=== PATIENT | female | born 1970 | race Caucasian/White ===

== ENCOUNTER 2025-03-13 13:10 | Outpatient (AMB) | payer OTHER, SELFPAY ==
--- NOTE | 2025-03-13 13:17 | A.OFFPC_ITS ---
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 Intake Note: New patient visit Business Office Representative Required: No Allergies No Known Allergies Allergy (Verified 03/13/25 13:17) Medication List - Last Reconciled 03/13/25 by Huong Reid PA-C estradiol 1 patch topical QWEEK progesterone micronized 100 mg PO BEDTIME Tobacco use date assessed: 03/13/25 Dental Screening Dental Screen Date: 03/13/25 Did you have a dental visit in the last 12 months?: Yes Did you have a dental problem in the last 6 months where you did not have access to dental care?: No Was dental information given to patient?: Patient has dentist HPI 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 She is transferring from [facility]. Psych: Has a history of anxiety and was previously on Zoloft, hydroxyzine, wellbutrin, citalopram, Prozac. Believes not a responder. She was seeing and found it ineffective. Thinks some of this is related to her marriage. She works in [employer] and states that getting does not seem like something she would want to do at this point. She states that she does not want to leave the marriage yet as she has two children fifteen and 13 years old. She states that she is hoping her we will change. She is thinking about starting a natural supplement. 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 1. Little interest or pleasure in doing things: several days 2. Feeling down, depressed, or hopeless: several days 3. Trouble falling or staying asleep, or sleeping too much: not at all 4. Feeling tired or having little energy: more than half the days 5. Poor appetite or overeating: not at all 6. Feeling bad about yourself - or that you are a failure or have let yourself or your family down: not at all 7. Trouble concentrating on things, such as reading the newspaper or watching television: not at all 8. Moving or speaking so slowly that other people could have noticed. Or the opposite - being so fidgety or restless that you have been moving around a lot more than usual: not at all 9. Thoughts that you would be better off or of hurting yourself in some way: not at all Total score: 4 Depression Screening Interpretation: Positive Depression Screening Follow-up: Existing condition and Declines treatment Depression Screening Done: Yes 75337 - PHQ-9 Billing: Yes Source: Developed by Drs. Samson Zamora, Olive Salcedo, Davey Arboleda and colleagues, with an educational angela from [employer]. Thrive Questionnaire Date Thrive assessed: 03/06/25 I am a: Patient What is your living situation today?: I have a steady place to live Within the past 12 months, did the food you bought not last and you didn't have the money to get more?: Never true Within the past 12 months, did you worry whether your food would run out before you got money to buy more?: Never true Do you have trouble paying for medicines?: No Do you have trouble getting transportation to medical appointments?: No Do you have trouble paying your heating and electricity bill?: No Do you have trouble taking care of your child, family member or friend?: No Do you have trouble with day-to-day activities such as bathing, preparing meals, shopping, managing finances, etc.?: No Are you currently unemployed and looking for a job?: No Are you interested in more education?: No Please select the resources that you would like help with: None Currently or been in a relationship where the following occur: No concerns reported THRIVE Score: 0 AUDIT C Alcohol Use Questionnaire (AUDIT-C) 1. How often do you have a drink containing alcohol?: Monthly or less 2. How many drinks containing alcohol do you have on a typical day when you are drinking?: 1 or 2 3. How often do you have six or more drinks on one occasion?: Never Total Score: 1 ALISON-7 AMB Questionnaire ALISON-7 Date ALISON - 7 assessed: 03/13/25 Feeling nervous, anxious, or on edge: 2 = More than half the days Not being able to stop or control worryin = Several days Worrying too much about different things: 1 = Several days Trouble relaxin = Several days Being so restless that it is hard to sit still: 0 = Not at all Becoming easily annoyed or irritable: 3 = Nearly every day Feeling afraid as if something awful might happen: 1 = Several days Total ALISON-7 score (0-4 normal; 5-9 mild; 10-14 moderate; 15-21 severe): 9 Source: Developed by Drs. Samson Zamora, Olive Salcedo, Davey Arboleda and colleagues, with an educational angela from [employer]. ALISON-7 Assessment Billing ALISON-7 Assessment Tool: ALISON-7 Assessment 51444 Physical exam (Primary Care) Depression Screening Interpretation: Positive Depression Screening Follow-up: Existing condition and Declines treatment Thrive Assessment: Date of Thrive Assessment Date Thrive assessed 03/06/25 03/06/25 12:28 Currently or been in a relationship where the following occur: No concerns reported Const Orientation/consciousness: patient oriented x3 HENWV Ears: hearing grossly normal bilaterally Neck Thyroid: Thyroid normal Lymphatic: no lymphadenopathy noted Resp Auscultation: clear to auscultation bilaterally Cardio Rate: regular rate Rhythm: regular rhythm Heart sounds: S1 normal heart sound present and S2 normal heart sound present GI Inspection: Yes normal to inspection Palpation (GI): Soft to palpation and Other GI palpation findings present (nontender, no cva tenderness) Auscultation: normoactive bowel sounds Rectal Exam - Female: deferred Skin General skin exam: no rashes or lesions noted Neuro General: patient oriented x3, gait normal and no focal motor deficits Coding Level of Care Code New Pt Level 3 (56413) Complex EM visit Add On G2211 Diagnoses Fatigue R53.83 Generalized anxiety disorder F41.1 Dysthymia F34.1 Additional Codes ALISON-7 Assessment Billing - ALISON-7 Assessment Tool: ALISON-7 Assessment 34928 ([id number]) PHQ-9 - 06687 - PHQ-9 Billing: Yes ([id number]) Assessment & Plan Assessment & Plan (1) Fatigue: Code(s): R53.83 - Other fatigue Category: Medical Plan: labs ordered (2) Generalized anxiety disorder: Code(s): F41.1 - Generalized anxiety disorder Category: Medical Plan: Stable. Does not wish to do anything at this point. (3) Dysthymia: Code(s): F34.1 - Dysthymic disorder Category: Medical Plan: As above. Labs ordered today. We will follow up pending test results. Colonoscopy referral placed. Dermatology referral placed for a skin check. Orders: Orders Complete Blood Count Auto Diff Today F34.1 - Dysthymic disorder, F41.1 - Generalized anxiety disorder, R53.83 - Other fatigue UA CC w/rflx Micro + Cult Today F34.1 - Dysthymic disorder, F41.1 - Generalized anxiety disorder, R53.83 - Other fatigue, Z13.220 - Encounter for screening for lipoid disorders Comprehensive [place]. Panel Fast Today F34.1 - Dysthymic disorder, F41.1 - Generalized anxiety disorder, R53.83 - Other fatigue Lipid Panel Today F34.1 - Dysthymic disorder, F41.1 - Generalized anxiety disorder, R53.83 - Other fatigue TSH reflex Free T4 Today F34.1 - Dysthymic disorder, F41.1 - Generalized anxiety disorder, R53.83 - Other fatigue Vitamin B12 and Folate Today F34.1 - Dysthymic disorder, F41.1 - Generalized anxiety disorder, R53.83 - Other fatigue Magnesium Today F34.1 - Dysthymic disorder, F41.1 - Generalized anxiety disorder, R53.83 - Other fatigue Vitamin D 25-OH Total Today F34.1 - Dysthymic disorder, F41.1 - Generalized anxiety disorder, R53.83 - Other fatigue Referrals Gastroenterology Referral F34.1 - Dysthymic disorder, F41.1 - Generalized anxiety disorder, R53.83 - Other fatigue, Z12.11 - Encounter for screening for malignant neoplasm of colon Dermatology Referral Z12.83 - Encounter for screening for malignant neoplasm of skin
[2025-03-13 13:22] VITALS: BP 128/74; PULSE 74; RESP 12; O2SAT 97; BMI 23.4
--- OUTSIDE RECORDS SUMMARY | 2025-03-13 14:28 | XMS_ITS | Clinical Summary ---
Author Organization [facility] [address] [facility] Address [address] [place] [address] Phone Care Team Providers Care Machine Riveter Name Role Phone Guillermo Villalobos MD Primary Care Provider [phone] Allergies No known active allergies Medications progesterone (PROMETRIUM) 100 mg capsule Take 1 capsule (100 mg total) by mouth at bedtime. 30 each 12 5 12/17/19 26 Active estradioL (CLIMARA) 0.05 mg/[address] 1 patch on the skin 1 (one) time per week. 4 each 11 5 03/05/20 26 Active estradioL (CLIMARA) 0.0375 mg/[address] 1 patch on the skin 1 (one) time per week. 4 patch 12 5 03/05/20 25 Discontinued Active Problems Problem Noted Date Diagnosed Date Anxiety disorder 06/30/2012 Encounters Date Type Department Care Team Description 12/17/2024 9:30 AM EST Office Visit Obstetrics & Gynecology - [address] [address] Lisa Thompson CNM Fatigue, unspecified type (Primary Dx); Dry skin; Arthralgia, unspecified joint from Last 3 Months Immunizations Name Administration Dates Next Due Influenza Quadravalent, MDCK , 0.5ml, preservative free (Flucelvax) 6mo and older 01/09/2022 Influenza trivalent, with preservative (Fluzone; Afluria) 6mo and older 07/28/2016,08/28/2015,08/26/2014,2011 Tdap Tetanus diptheria acell ular pertussis (Boostrix; Adacel) 7yo and older 04/11/2013,06/28/2012 Surgical History Surgery Date Site/Laterality Comments OTHER SURGICAL HISTORY 1998 PROCEDURE: IMPLANT BREAST SILICONE/EQ; COMMENT: saline BREAST ENHANCEMENT SURGERY W IMPLANT Medical History Medical History Date Comments Depression DX:Depression Anxiety DX:Anxiety History of bilateral saline breast implants 08/26/2014 DX:History of bilateral sali ne breast implants Family History Medical History Relation Name Comments Cancer Father Samson Artis Heart attack Father Samson Artis Heart disease Father Samson Artis Hypertension Father Samson Artis Kidney disease Father Samson Artis Lung disease Father Samson Artis Clotting disorder Mother Rosa Artis Dementia Mother Rosa Artis Other: Blood clots legs Mother Rosa Artis by description, probably phlebitis not DVT Other: Ulcers (stomach) Mother Rosa Artis Developmental delay Sister 1 Sophia Artis Other: Cavernous Malformation Sister 1 Sophia Valentin magnus Breast cancer Neg Hx Colon cancer Neg Hx Ovarian cancer Neg Hx Uterine cancer Neg Hx Relation Name Status Comments Brother Alive [place] Daughter 1 Alive 1996 Daughter 2 Alive 2012 healthy Father Samson Artis Alive [place] late 50' s ,? CABG orother surgery , HTN Maternal Grandfather Maternal Grandmother Mother Rosa Artis Alive age 78 asof 2 014:blood clot legs, dementia,permanent bladder catheter, Paternal Grandfather Paternal Grandmother Sister 1 Sophia Artis Sister 2 Alive fraternal twin she and her children have cavernous malformation Son 1 Alive 1994 Son 2 Alive 2009 Social History Tobacco Use Types Packs/Day Years Used Date Smoking Tobacco: Never Smokeless Tobacco: Never Tobacco Cessation:Counseling Given: Not Answered Alcohol Use Standard Drinks/Week Comments Yes 0 (1 standard drink = 0.6 oz pur e alcohol) Housing Instability Answer Date Recorde d Are you worried that in the next 2 months you may not have stable housing? No 11/13/2024 Food Access & Nutrition Answer Date Rec orded Do you have access to a vari ety of food including fruits and vegetables? Yes 11/13/2024 Access to Healthcare Answer Date Record ed Within the last 3 months, ho w many times did you visit the emergency department for your medical care? 0 11/13/2024 Health Literacy Answer Date Recorded How often do you need to hav e someone help you when you read instructions, pamphlets, or other written material from your doctor or pharmacy? Never 11/13/2024 Caregiver: How often do you need to have someone help you when you read instructions, pamphlets, or other written material from your doctor or pharmacy? Not on file 11/13/2024 Financial Risk Answer Date Recorded How hard is it for you to pa y for the very basics like food, housing, medical care, and air conditioning / heating? Not very hard 11/13/2024 Transportation Answer Date Recorded Has the lack of transportati on kept you from meetings, work, or from getting things needed for daily living? No Has the lack of transportati on kept you from medical appointments or from getting medications? No 11/13/2024 Social Isolation Answer Date Recorded How often do you feel lonely or isolated from those around you? Sometimes 11/13/2024 Food Risk Answer Date Recorded Within the past 12 months we worried whether our food would run out before we got money to buy more. Never true 11/13/2024 Within the past 12 months th e food we bought just didn't last and we didn't have money to get more. Never true 11/13/2024 Dependent Care Answer Date Recorded Do you need help finding or paying for care for your loved ones. For example, assistant child care teacher or elderly care for an older adult? No 11/13/2024 Education Answer Date Recorded Do you think completing more education or training, like finishing a GED, going to college, or learning a trade, would be helpful for you? N/A 11/13/2024 Employment and Income Answer Date Recor ded During the last four weeks, have you been actively looking for work? No 11/13/2024 Living Situation Answer Date Recorded What is your living situation? 1 Comments No Sex and Gender Information Value Date Recorded Sex Assigned at Not on file Legal Sex Female 6:45 PM EST Gender Identity Not on file Sexual Orientation Not on file Obstetrics History Para Term AB IAB SAB Ectopic Multiple Livin g Live Births 5 4 4 1 1 4 4 Date Outcome GA Total Labor Labor/2nd/3rd Weight Sex Type Anes PTL Alejandra A1 A5 Name Clin 995 Term 40w 0d 3459 g (122 oz) M Vag-S pont Livin g Darrell Delivery Location:[facility] Comments:uncompl 997 Term 40w 0d 3459 g (122 oz) F Vag-S pont Livin g Aedan Delivery Location:[facility] Comments:uncompl 010 Term 40w 0d 3459 g (122 oz) M Vag-S pont Livin g Frank Delivery Location:[facility] Comments:uncompl 08/2011 SAB 8w0 d Comments:uncompl dxc 013 Term 40w 3d 4h 28m/ 3941 g (139 oz) F Vag-S pont None Livin g 9 9 Xiao Delivery Location:[facility] Comments:uncompl Last Filed Vital Signs Vital Sign Reading Time Taken Comments Blood Pressure 116/76 12/17/2024 9:40 AM EST Pulse 81 12/17/2024 9:40 AM EST Temperature - - Respiratory Rate 14 11/20/2024 2:16 PM EST Oxygen Saturation - - Inhaled Oxygen Concentration - - Weight 60.8 kg (134 lb) 12/17/2024 9:40 AM EST Height 160 cm (5' 3 ) 12/17/2024 9:40 AM EST Body Mass Index 23.74 12/17/2024 9:40 AM EST Plan of Treatment Health Maintenance Due Date Last Done Comments Hepatitis B Vaccines (1 of 3 - 19+ 3-dose series) 01/17/1991 Pneumococcal Vaccine: 50+ Years (1 of 1 - PCV) 01/17/2022 Zoster Vaccines (1 of 2) 01/17/2022 Colorectal Cancer Screening: Colonoscopy 10/16/2022 Hepatitis C Screening 10/16/2022 DTaP,Tdap,and Td Vaccines (3 - Td or Tdap) 04/11/2023 04/11/2013, 06/28/2012 COVID-19 Vaccine (3 - 2023- season) 2024 01/09/2022, 03/19/2021 Influenza Vaccine (Season Ended) 2025 01/09/2022, 07/28/2016, 08/28/2015, Additional history exists Depression Screening 11/13/2025 11/13/2024 Social Influencers of Health Screening 11/13/2025 11/13/2024 Breast Cancer Screening 10/09/2026 10/09/20 24, 09/27/2023, 09/23/2022, Additional history exists Cervical Cancer Screening: HPV 11/20/2029 11/20/2024, 02/27/2018 HIV Screening Completed 10/13/2012 HIB Vaccines Aged Out No longer eligi ble based on patient's age to complete this topic HPV Vaccines Aged Out No longer eligi ble based on patient's age to complete this topic Hepatitis A Vaccines Aged Out No long er eligible based on patient's age to complete this topic IPV Vaccines Aged Out No longer eligi ble based on patient's age to complete this topic MMR Vaccines Aged Out No longer eligi ble based on patient's age to complete this topic Meningococcal ACWY Vaccine Aged Out N o longer eligible based on patient's age to complete this topic Meningococcal B Vaccine Aged Out No l onger eligible based on patient's age to complete this topic Pneumococcal Vaccine: Pediatrics (0 to 5 Years) and At-Risk Patients (6 to 64 Years) Aged Out No longer eligible based on patient's age to complete this topic RSV Immunization Patients Under 20 months Aged Out No longer eligible based on patient's age to complete this topic Varicella Vaccines Aged Out No longer eligible based on patient's age to complete this topic Procedures Procedure Name Priority Date/Time Associated Diagnosis Comments THYROID STIMULATING HORMONE WITH REFLEX TO FREE T4 AND FREE T3 Routine 12/17/2024 10:09 AM EST Fatigue, unspecified type HPV WITH REFLEX GENOTYPE Routine 11/20/2024 3:18 PM EST Encounter for annual routine gynecological examination MG MAMMO DIGITAL SCREENING W HANSEL BILAT Routine 10/09/2024 3:05 PM EST Encounter for screening mammogram for breast cancer HM HIV SCREENING Routine 10/13/2012 from Last 3 Months or Most Recently Relevant to Health Maintenance Results * Thyroid stimulating hormone with reflex to free t4 and free t3 (12/17/2024 10:09 AM EST) TSH 1.30 0.40 - 4.00 mcIU/mL LAB CHEMISTRY METHOD 12/17/2024 1:06 PM EST [facility] Blood Venous blood specimen / Unknown Venipuncture / Unknown 12/17/2024 10:09 AM EST 12/17/2024 12:14 PM EST Lisa Thompson [facility] BLOOD ORDERABLES Final Result [facility] [address] [place] [address], [place] [phone] * HPV with reflex genotype (11/20/2024 3:18 PM EST) HPV Negative Negative LAB MICROBIOLOGY METHOD 11/21/2024 2:26 PM EST [facility] Brushing/Spatula Cervix uteri structure / Unknown 11/20/2024 3:18 PM EST 11/21/2024 8:28 AM EST Gatito Cortez [facility] MOLECULAR DIAGNOSTICS ORDE RABLES Final Result Performing Organization Address City/[facility]/ZIP Co de Phone Number [facility] [address] [place] [address], [place] [phone] * MG Mammo Digital Screening w Hansel bilat (10/09/2024 3:05 PM EST) Anatomical Region Laterality Modality Breast Bilateral Mammography 10/10/2024 3:23 PM EST Impressions 10/10/2024 3:28 PM EST No mammographic evidence for malignancy. BI-RADS CATEGORY: 1 - NEGATIVE RECOMMENDATION: Screening bilateral mammogram is recommended in 1 year. Mammo Location: [facility], [address] [place] [address], [id number], . Screening bilateral mammogram is recommended in 1 year. -------- FINAL REPORT -------- Dictated By: Kezia Manuel Dictated Date: 10/10/2024 15:23 ET Assigned Physician: Kezia Manuel Reviewed and Electronically Signed By: Kezia Manuel Signed Date: 10/10/2024 15:28 ET Workstation ID: [id number] Transcribed By: Self Edit Transcribed Date: 10/10/2024 15:23 ET Narrative 10/10/2024 3:28 PM EST Bilateral screening mammogram. CLINICAL: 54 years old, Female, routine annual exam. COMPARISON: Prior studies, latest 09/27/2023. ?? TECHNIQUE: Bilateral MLO and CC views were obtained digitally with 3-D mammogram (digital breast tomosynthesis) without and with implant displacement.. Computer- aided detection was utilized in evaluation of this exam (CAD). FINDINGS: There is no evidence of suspicious mass or architectural distortion. ??No worrisome calcifications are evident. ??There has been no significant change from prior exam(s). ? Implants are stable in appearance. BREAST DENSITY: C - The breasts are heterogeneously dense which may obscure small masses. Procedure Note Kezia Manuel MD - 10/10/2024 Bilateral screening mammogram. CLINICAL: 54 years old, Female, routine annual exam. COMPARISON: Prior studies, latest 09/27/2023. TECHNIQUE: Bilateral MLO and CC views were obtained digitally with 3-Dmammogram (digital breast tomosynthesis) without and with implantdisplacement.. Computer- aided detection was utilized in evaluation of thisexam (CAD). FINDINGS: There is no evidence of suspicious mass or architectural distortion. Noworrisome calcifications are evident. There has been no significantchange from prior exam(s). Implants are stable in appearance. BREAST DENSITY: C - The breasts are heterogeneously dense which mayobscure small masses. IMPRESSION: No mammographic evidence for malignancy. BI-RADS CATEGORY: 1 - NEGATIVE RECOMMENDATION: Screening bilateral mammogram is recommended in 1 year. Mammo Location: [facility], [address] [place] [address], [id number], . Screening bilateralmammogram is recommended in 1 year. -------- FINAL REPORT -------- Dictated By: Kezia Manuel Dictated Date: 10/10/2024 15:23 ET Assigned Physician: Kezia Manuel Reviewed and Electronically Signed By: Kezia Manuel Signed Date: 10/10/2024 15:28 ET Workstation ID: [id number] Transcribed By: Self Edit Transcribed Date: 10/10/2024 15:23 ET Guillermo Villalobos MD IMG BI PROCEDURES Final Res ult * Hm HIV Screening (10/13/2012) HIV Screening Abstracted us Historical Provider HEALTH MAINTENANCE Final Result from Last 3 Months or Most Recently Relevant to Health Maintenance Insurance [facility] [address] [place] [address] Care Teams Machine Riveter Relationship Specialty Start Date End Date Guillermo Villalobos MD [address] [place] [address] [address] [place], [place] PCP - General Family Medicine 12/13/24
== END 2025-03-13 14:07 | disposition home or self-care (01) ==
LOC: HO.HMCFM 13:11
PROVIDERS: PCP Physician Assistant; Visit Provider Physician Assistant
DX: R53.83 Other fatigue (principal); F41.1 Generalized anxiety disorder; F34.1 Dysthymic disorder

== ENCOUNTER → 2025-03-13 13:10 | Outpatient (BNVA) | payer OTHER, SELFPAY | PROVIDERS: PCP Physician Assistant; Visit Provider Physician Assistant | DX: F41.1 Generalized anxiety disorder (principal); R53.83 Other fatigue; F34.1 Dysthymic disorder | CPT/HCPCS: 96127 ==

== ENCOUNTER 2025-10-03 14:19 | Outpatient (AMB) | payer OTHER, SELFPAY ==
--- NOTE | 2025-10-03 14:23 | MHC.PC.OV ---
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 Forgot to get labs prior. HEENT: Does report decreased left sided hearing. She finds herself saying what? A lot and having people repeat themselves. This has been a gradual thing that has gotten worse over the last couple years. Was no ill lives. There is no ringing, pain or drainage from the ear. No sinus congestion or pressure. No headaches. Psych: Has a history of anxiety and was previously on Zoloft, hydroxyzine, wellbutrin, citalopram, Prozac. Believes not a responder. She was seeing and found it ineffective. Thinks some of this is related to her marriage. She works in [employer] and states that getting does not seem like something she would want to do at this point. She states that she does not want to leave the marriage yet as she has two children fifteen and 13 years old. She states that she is hoping her we will change. 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) Cognitive needs: No Hearing needs: Yes (some hearing loss) Vision needs: Yes (contacts) Questionnaire Thrive Questionnaire Date Thrive assessed: 03/06/25 I am a: Patient What is your living situation today?: I have a steady place to live Within the past 12 months, did the food you bought not last and you didn't have the money to get more?: Never true Within the past 12 months, did you worry whether your food would run out before you got money to buy more?: Never true Do you have trouble paying for medicines?: No Do you have trouble getting transportation to medical appointments?: No Do you have trouble paying your heating and electricity bill?: No Do you have trouble taking care of your child, family member or friend?: No Do you have trouble with day-to-day activities such as bathing, preparing meals, shopping, managing finances, etc.?: No Are you currently unemployed and looking for a job?: No Are you interested in more education?: No Please select the resources that you would like help with: None Currently or been in a relationship where the following occur: No concerns reported THRIVE Score: 0 AUDIT C Alcohol Use Questionnaire (AUDIT-C) 1. How often do you have a drink containing alcohol?: Monthly or less 2. How many drinks containing alcohol do you have on a typical day when you are drinking?: 1 or 2 3. How often do you have six or more drinks on one occasion?: Never Total Score: 1 ALISON-7 AMB Questionnaire ALISON-7 Date ALISON - 7 assessed: 03/13/25 Source: Developed by Drs. Samson Zamora, Olive Salcedo, Davey Arboleda and colleagues, with an educational angela from [employer]. Physical exam (Primary Care) Vital Signs: Last Vital Signs Pulse 75 10/03/25 14:26 Resp 14 10/03/25 14:26 BP 102/68 10/03/25 14:26 Pulse Ox 95 10/03/25 14:26 Oxygen Delivery Method Room Air 10/03/25 14:26 BMI result Body Mass Index 23.0 Tobacco/Smoking Status: Tobacco use Status Tobacco use date assessed 10/03/25 10/03/25 14:28 Patient Tobacco Use Status Never used Tobacco 10/03/25 14:28 e-Cigarette/Vaping Use Never Used 10/03/25 14:28 Thrive Assessment: Date of Thrive Assessment Date Thrive assessed 03/06/25 10/03/25 14:28 Currently or been in a relationship where the following occur: No concerns reported Const Orientation/consciousness: patient oriented x3 HENMT Other: She is able to hear a soft with spur on the left but is unable to discern what is said. She is able to hear a soft whisper from a few feet away on the right without difficulty. Ears: hearing grossly normal bilaterally and TM's normal bilaterally General nose exam: No nasal polyps present Face and sinus: Yes sinuses nontender Mouth: Normal oral and palatal mucosa present Eyes Pupils: Equal, round and reactive pupils present EOM: EOMs intact bilaterally Neck Neck: Yes full ROM and Yes no lymphadenopathy Thyroid: Thyroid normal Chest Chest palpation & inspection: normal inspection of the chest Resp Auscultation: clear to auscultation bilaterally Cardio Rate: regular rate Rhythm: regular rhythm Heart sounds: S1 normal heart sound present and S2 normal heart sound present Peripheral pulses: Peripheral pulses 2+ throughout GI Other: Soft, nontender Auscultation: normal bowel sounds Rectal Exam - Female: deferred General: Yes no CVA tenderness Back/Spine/Pelvis Other: Nontender Back: no CVA tenderness Skin General skin exam: no rashes or lesions noted Neuro General: patient oriented x3, gait normal, CN's II-XI intact bilaterally and deep tendon reflexes 2+ bilaterally Cranial nerves: Yes Equal, round and reactive pupils present Motor exam (neuro): 5/5 motor strength present throughout Sensory Exam: double simultaneous stimulation for sensation normal Coordination: [id number] test normal and Romberg test negative Extrem General: Yes normal to inspection and Yes full ROM Psych Affect: normal affect Attitude: cooperative Thought process: Normal thought process present Thought content: Normal thought content present Insight: Good insight present (Psych) Judgement: Good judgement present (Psych) Coding Level of Care Code Est Pt Prev Care 40-64y(04568) Diagnoses Routine general medical examination at a health care facility Z00.00 Decreased hearing of left ear H91.92 Assessment & Plan Assessment & Plan (1) Routine general medical examination at a health care facility: Code(s): Z00.00 - Encounter for general adult medical examination without abnormal findings Plan: Health maintenance reviewed Labs ordered. Advised her to complete these at her convenience. (2) Decreased hearing of left ear: Code(s): H91.92 - Unspecified hearing loss, left ear Category: Medical Plan: Referral to ENT Advised to complete labs Plan Referral to derm Cologuard ordered Orders: Referrals Ear/Nose/Throat Referral H91.92 - Unspecified hearing loss, left ear Dermatology Referral L98.9 - Disorder of the skin and subcutaneous tissue, unspecified, Z12.83 - Encounter for screening for malignant neoplasm of skin Cologuard Test Z12.11 - Encounter for screening for malignant neoplasm of colon Patient Instructions: [phone]?Phone
[2025-10-03 14:26] VITALS: BP 102/68; PULSE 75; RESP 14; O2SAT 95; BMI 23.0
--- OUTSIDE RECORDS SUMMARY | 2025-10-03 19:45 | XMS_ITS | Encounter Summary ---
Author Organization [facility] Address [address] [place] [address] Care Team Providers Care Motion Picture Camera Lens Technician Name Role Phone Dora Norwood MD Primary Care Provider Un available Encounter Details Date Type Department Care Team Description 10/15/2016 Pt. Non Urgent Medic al Question Medicine/Pediatrics - [address] [id number] Oliver Martniez PA-C Social History Tobacco Use Types Packs/Day Years Used Date Smoking Tobacco: Never Smokeless Tobacco: Never Alcohol Use Standard Drinks/Week Comments No 0 (1 standard drink = 0.6 oz pur e alcohol) rare, social Sex Assigned at Date Recorded Not on file documented as of this encounter Progress Notes * Muriel Wright L.P.N. - 10/15/2016 3:35 PM ESTFrom: Michelle Gil To: Oliver Martinez PA-C Sent: 10/15/2016 3:18 PM EST Subject: Medication dosage I started taking the 50mg and didn't feel any different so I tried 75mg for about 6 days now. Can'treally say I'm feeling any different except more tired. The medicine is easy to cut in half. Thank you. documented in this encounter Plan of Treatment Not on file documented as of this encounter Visit Diagnoses Not on filedocumented in this encounter Care Teams Motion Picture Camera Lens Technician Relationship Specialty Start Date End Date Dora Norwood MD PCP - General Internal Medicine 05/09/12 documented as of this encounter
--- OUTSIDE RECORDS SUMMARY | 2025-10-03 19:45 | XMS_ITS | Clinical Summary ---
Author Organization [facility] [address] [facility] Address [address] [place] [address] Phone Care Team Providers Care Hooker Inspector Name Role Phone Guillermo Villalobos MD Primary Care Provider [phone] Allergies No known active allergies Medications progesterone (PROMETRIUM) 100 mg capsule Take 1 capsule (100 mg total) by mouth at bedtime. 30 each 12 12/17/2024 6 Active estradioL (CLIMARA) 0.05 mg/[address] 1 patch on the skin 1 (one) time per week. 12 patch 3 08/02/2025 6 Active Active Problems Problem Noted Date Diagnosed Date Anxiety disorder 06/30/2012 Encounters Date Type Department Care Team Description 08/02/2025 Telephone Obstetrics and Gynecology [address] [phone] Alysa Paige CNM from Last 3 Months Immunizations Immunization Administration Dates Next Due Influenza Quadravalent, MDCK [...] Artis Other: Cavernous Malformation Sister 1 Sophia agudelo Breast cancer Neg Hx Colon cancer Neg Hx Ovarian cancer Neg Hx Uterine cancer Neg Hx Relation Name Status Comments Brother Alive Daughter 1 Alive 1996 Daughter 2 Alive 2012 healthy Father Samson Artis Alive NE late 50' s ,? CABG orother surgery [...] care for your loved ones. For example, childcare provider or elderly care for an older adult? [...] Date Recorded What is your living situation? Unrecognized valu e 11/13/2024 Comments No Sex and Gender Information Value Date Recorded Sex Assigned at Not on file Legal Sex Female 6:45 PM EST Gender Identity Not on file Sexual Orientation Not on file Obstetrics History * This document contains information received from the source organization and may not represent a complete record from that organization. Para Term AB IAB SAB Ectopic Multiple Livin g Live Births 5 4 4 4 4 Date Outcome GA Total Labor Labor/2nd/3rd Weight Sex Type Anes PTL Alejandra A1 A5 Name Clin 995 Term 40w 0d 3459 g (122 oz) M Vag-S pont Livin g Darrell Delivery Location:[facility] Comments:uncompl 997 Term 40w 0d 3459 g (122 oz) F Vag-S pont Livin g Aedan Delivery Location:[facility] Comments:uncompl 010 Term 40w 0d 3459 g (122 oz) M Vag-S pont Livin g Frank Delivery Location:[facility] Comments:uncompl 08/2011 013 Term 40w 3d 4h 28m/ 3941 g (139 oz) F Vag-S pont None Livin g 9 9 Xiao Delivery Location:[facility] Comments:uncompl Last Filed Vital Signs Vital Sign [...] Health Maintenance Due Date Last Done Comments Colorectal Cancer Screening: Colonoscopy 1972 Hepatitis B Vaccines (1 of 3 - 19+ 3-dose series) 01/17/1991 Pneumococcal Vaccine: 50+ Years (1 of 1 - PCV) 01/17/2022 Zoster Vaccines (1 of 2) 01/17/2022 Hepatitis C Screening 10/16/2022 DTaP,Tdap,and Td Vaccines (3 - Td or Tdap) 04/11/2023 04/11/2013, 06/28/2012 Depression Screening 11/14/2024 11/13/2024 COVID-19 Vaccine (3 - season) 2025 01/09/2022, 03/19/2021 Influenza Vaccine (#1) 2025 , 07/28/2016, 08/28/2015, Additional history exists Social Influencers of Health Screening 11/13/2025 11/13/2024 Breast Cancer Screening 10/09/2026 10/09/20 24, 09/27/2023, 09/23/2022, Additional history exists Cervical Cancer Screening: HPV 11/20/2029 11/20/2024, 02/27/2018 RSV Immunization Adult Patients (1 - 1-dose 75+ series) 01/17/2047 HIV Screening Completed 10/13/2012 HIB Vaccines Aged [...] Procedure Name Priority Date/Time Associated Diagnosis Comments HPV WITH REFLEX GENOTYPE Routine 11/20/2024 3:18 PM EST Encounter for annual routine gynecological examination MG MAMMO DIGITAL SCREENING W HANSEL BILAT Routine 10/09/2024 3:05 PM EST Encounter for screening mammogram for breast cancer HM HIV SCREENING Routine 10/13/2012 from Last 3 Months or Most Recently Relevant to Health Maintenance Results * HPV with reflex genotype (11/20/2024 3:18 PM EST) HPV Negative Negative LAB MICROBIOLOGY METHOD 11/21/2024 2:26 PM EST [facility] Brushing/Spatula Cervix uteri structure / Unknown 11/20/2024 3:18 PM EST 11/21/2024 8:28 AM EST us Gatito Cotrez CNM LAB MOLECULAR DIAGNOSTICS DONG RIVERA [facility] [address] [place] [address], [place] [phone] * MG Mammo Digital Screening w Hansel bilat (10/09/2024 3:05 PM EST) Anatomical Region Laterality Modality Breast Bilateral Mammography 10/10/2024 3:23 PM EST Impressions 10/10/2024 3:28 PM EST No mammographic evidence for malignancy. BI-RADS CATEGORY: 1 - NEGATIVE RECOMMENDATION: Screening bilateral mammogram is recommended in 1 year. Mammo Location: [facility], [address] [place] [address], [id number], . Screening bilateral mammogram is recommended in 1 year. -------- FINAL REPORT -------- Dictated By: Kezia Manuel Dictated Date: 10/10/2024 15:23 ET Assigned Physician: Kezia Manuel Reviewed and Electronically Signed By: Kezia Manuel Signed Date: 10/10/2024 15:28 ET Workstation ID: [id number] Transcribed By: Self Edit Transcribed Date: 10/10/2024 [...] evidence of suspicious mass or architectural distortion. No worrisome calcifications are evident. There has been no significant change from prior exam(s). Implants are stable in [...] is recommended in 1 year. Mammo Location: [facility], [address] [place] [address], [id number], . Screening bilateralmammogram is recommended in 1 year. -------- FINAL REPORT -------- Dictated By: Kezia Manuel Dictated Date: 10/10/2024 15:23 ET Assigned Physician: Kezia Manuel Reviewed and Electronically Signed By: Kezia Maunel Signed Date: 10/10/2024 15:28 ET Workstation ID: [id number] Transcribed By: Self Edit Transcribed Date: 10/10/2024 15:23 ET Guillermo Villalobos MD IMG BI PROCEDURES Final Res ult * HIV Screening (10/13/2012) HIV Screening Abstracted Historical Provider HEALTH MAINTENANCE Final Result from Last 3 Months or Most Recently Relevant to Health Maintenance Insurance [facility] Care Teams Hooker Inspector Relationship Specialty Start Date End Date Guillermo Villalobos MD [address] [facility] ColbertANISHA PCP - General Family Medicine 12/13/24
== END 2025-10-03 14:54 | disposition home or self-care (01) ==
LOC: HO.HMCFM 14:20
PROVIDERS: PCP Physician Assistant; Visit Provider Physician Assistant
DX: Z00.00 Encounter for general adult medical examination without abnormal findings (principal); H91.92 Unspecified hearing loss, left ear